=== PATIENT | male | born 1975 | race Caucasian/White ===

== ENCOUNTER → 2016-08-17 | Outpatient (CLI) | payer OTHER | LOC: BMCIMAGING 11:35 | PROVIDERS: ATTEND Family Medicine | DX: I80.01 Phlebitis and thrombophlebitis of superficial vessels of right lower extremity (principal) ==

== ENCOUNTER 2016-09-08 19:28 | Emergency (ER) | payer OTHER ==
[2016-09-08 19:52] VITALS: RESP 16; TEMP 98.1
--- NOTE | 2016-09-08 20:00 | EDPHY ---
H & P Stated Complaint: pt had a massage last night, c/o headache, lower leg pain. - Personal History Current Tetanus Diphtheria and Acellular Pertussis (TDAP): Unsure - Medical/Surgical History Hx Asthma: No Hx Chronic Respiratory Disease: No Hx Diabetes: No Hx Cardiac Disease: No Hx Renal Disease: No Hx Cirrhosis: No Hx Alcoholism: No Hx HIV/AIDS: No Hx Splenectomy or Spleen Trauma: No Other PMH: Anxiety, DVT, - Social History Smoking Status: Former smoker Time Seen by Provider: 09/08/16 19:59 Constitutional: Initial Vital Signs Temperature (C) 36.7 C 09/08/16 19:46 Heart Rate 76 09/08/16 19:46 Respiratory Rate 16 09/08/16 19:46 Blood Pressure 134/93 H 09/08/16 19:46 O2 Sat (%) 95 09/08/16 19:46 O2 Delivery Mode Room Air Allergies/Adverse Reactions: No Known Allergies Allergy (Verified 05/06/13 06:51) Home Medications: Medication Instructions Recorded Dexmethylphenidate HCl ER 09/08/16 Doxepin HCl 09/08/16 Gabapentin 09/08/16 Indomethacin 09/08/16 Xarelto 09/08/16 Medical Decision Making - Diagnostics Imaging: Discussed imaging studies w/ scallop cutter Radiologist ED Course/Re-evaluation: CHIEF COMPLAINT: Anxiety, headache HISTORY OF PRESENT ILLNESS: The patient is an anticoagulated 41 y/o male arriving with his family member complaining of headache and anxiety. He was diagnosed with a superficial thrombophlebitis in his right calf a couple weeks ago and was started on Xarelto. He has been going through stressful life circumstances and has begun to feel quite anxious about this condition. He developed a "splitting" headache in the last couple days and is concerned it could be related to the superficial thrombus. No weakness, paresthesias, vision changes, speech difficulty, fever, or other complaints. He is otherwise healthy. REVIEW OF SYSTEMS: A 10 point review of systems was performed and is negative with the exception of the elements mentioned in the history of present illness. PHYSICAL EXAM: HR, BP, O2 Sat, RR. Temp noted General Appearance: Alert, well hydrated, appropriate, and non-toxic appearing. Head: Atraumatic without scalp tenderness or obvious injury Eyes: Pupils equal, round, reactive to light and accommodation, EOMI, no trauma , no injection. Nose: Atraumatic, no rhinorrhea, clear. Throat: Mucus membranes moist. Neck: Supple, nontender, no lymphadenopathy. Respiratory: No retractions, no distress, no wheezes, and no accessory muscle use. Lungs are clear to auscultation bilaterally. Cardiovascular: Regular rate and rhythm, no murmurs, rubs, or gallops.Right dorsalis pedis pulse intact. Good capillary refill all extremities. Gastrointestinal: Abdomen is soft, nontender, non-distended, no masses, no rebound, no guarding, no peritoneal signs. Musculoskeletal: Tiny superficial palpable vein along right calf. Normal active ROM of all extremities, atraumatic. Neurological: Alert, appropriate, and interactive. Nonfocal neuro exam. Skin: No rashes, good turgor, no nodules on palpation. Past medical history: superficial thrombophlebitis right calf - Xarelto for the last few weeks Past surgical history: denies Family history: noncontributory Social history: Family member at bedside. PCP: Dr. Ceron, [facility] Reviewed prior medical records reviewed including extremity US 08/17/16 showing superficial venous thrombus. DIAGNOSTICS/PROCEDURES/CRITICAL CARE TIME: Head CT: negative DIFFERENTIAL DIAGNOSIS: The differential diagnosis for the patient's headache included but was not limited to subarachnoid hemorrhage, migraine headache, tension headache and infectious causes such as meningitis, pharyngitis and sinusitis. MEDICAL DECISION MAKING: This is an otherwise healthy 41 y/o male presenting with anxiety and headache in the setting of recent right leg superficial thrombophlebitis. Plan for IV, full hypercoagulopathy panel, head CT, and right leg US. 2100: Signed patient care out to Dr. Salmon at shift change pending right leg ultrasound. If negative, patient will be sent home with headache and superficial thrombophlebitis. (Darrell Sharma) Patient's right leg ultrasound demonstrates stable superficial clot in the saphenous vein with no clot in the deep venous system. Hypercoagulable panel had been ordered. Labs that are available to me at this time are largely unremarkable. I discussed the ultrasound findings with the patient and his . They are reassured by the findings. He will follow up with his primary care physician Dr. Ceron. (Cami Salmon) - Data Points Laboratory Results: Laboratory Results 09/08/16 20:45 08/01/17 20:45 Departure - Departure Disposition: Home, Routine, Self-Care Clinical Impression: Headache Qualifiers: Headache type: other headache syndrome Qualified Code(s): G44.89 - Other headache syndrome Superficial thrombophlebitis Qualifiers: Superficial thrombophlebitis-Involved body area: lower extremity Laterality: right Qualified Code(s): I80.01 - Phlebitis and thrombophlebitis of superficial vessels of right lower extremity Condition: Good Instructions: Acute Headache (ED) Additional Instructions: Follow up with your primary care provider for unimproved symptoms over the next few days. Warm compresses to the area of superficial clot may help with any discomfort. Referrals: Markell Ceron MD [Primary Care Provider] - As per Instructions Report Scribed for: Darrell Sharma Report Scribed by: Sade Ryder Date of Report: 09/08/16 Time of Report: 20:16
[2016-09-08 21:03] LABS: % IMMATURE GRANULYOCYTES 0.2 % (0.0-1.1); ABSOLUTE IMMATURE GRANULOCYTES 0.02 10^3/uL (0.00-0.10); ADD DIFF? NO; ADD MORPH? NO; ADD SCAN? NO; ATYPICAL LYMPHOCYTE FLAG 10 (0-99); FRAGMENT RBC FLAG 0 (0-99); HEMATOCRIT 50.1 % (40.0-51.0); HEMOGLOBIN 17.7 g/dL (13.7-17.5); LEFT SHIFT FLG 0 (0-99); LIPEMIA HEMOLYSIS FLAG 90 (0-99); MEAN CELL HEMOGLOBIN 31.9 pg (27.9-34.1); MEAN CELL HEMOGLOBIN CONCENTR. 35.3 g/dL (32.4-36.7); MEAN CELL VOLUME 90.3 fL (81.5-99.8); MEAN PLATELET VOLUME 9.6 fL (8.7-11.7); PLATELET CLUMPS FLAG 20 (0-99); PLATELET COUNT 246 10^3/uL (150-400); RED BLOOD CELL COUNT 5.55 10^6/uL (4.40-6.38); RED CELL DISTRIBUTION WIDTH 12.7 % (11.5-15.2)
[2016-09-08 21:10] LABS: APTT 33.9 SEC (23.0-38.0); INR 1.15 (0.83-1.16); PROTIME(PATIENT) 14.7 SEC (12.0-15.0)
[2016-09-08 21:16] LABS: ANION GAP 14 mEq/L (8-16); CALCIUM 10.2 mg/dL (8.5-10.4); CARBON DIOXIDE 23 mEq/l (22-31); CHLORIDE 106 mEq/L (97-110); GLOMERULAR FILTRATION RATE > 60; GLUCOSE 87 mg/dL (70-100); POTASSIUM 4.4 mEq/L (3.5-5.2); SODIUM 143 mEq/L (134-144)
--- NOTE | 2016-09-08 21:17 | CPEKG ---
Heart Rate: 73 RR Interval: 822 P-R Interval: 176 QRSD Interval: 94 QT Interval: 392 QTC Interval: 432 P Fowler: 52 QRS Fowler: 45 T Wave Fowler: 32 EKG Severity - NORMAL ECG - EKG Impression: SINUS RHYTHM Electronically Signed By: Cami Salmon 09-Sep-2016 00:43:43
[2016-09-08 21:19] LABS: FIBRINOGEN 319 mg/dL (214-456)
[2016-09-08 21:28] LABS: TROPONIN I < 0.012 ng/mL (0-0.034)
[2016-09-08 22:05] VITALS: BP 126/87; PULSE 77; O2SAT 94
[2016-09-10 14:12] LABS: PROTEIN C ACTIVITY 179 % (70 - 150)
[2016-09-11 11:54] LABS: PROTEIN S ACTIVITY 117 % (65 - 160)
[2016-09-14 09:45] LABS: INTERPRETATION See Comments
== END 2016-09-08 22:05 | disposition home or self-care (01) ==
DX: R51 Headache (principal); I80.01 Phlebitis and thrombophlebitis of superficial vessels of right lower extremity; Z87.891 Personal history of nicotine dependence
CPT/HCPCS: 85300-90; 85303-90; 85306-90; 86147-90